=== PATIENT | male | born 1995 | race Caucasian/White ===

== ENCOUNTER 2017-09-25 13:25 | Emergency (ER) | payer OTHER ==
[~2017-09-25 13:25] MED LIST: AMOX-559 PO; LISD20CA4 PO
[2017-09-25 13:30] VITALS: BP 142/75
[2017-09-25] MEDS ORDERED: LORA1TAB69 PO (13:42)
[2017-09-25] MEDS ORDERED: LISD30PT PO (13:42)
[2017-09-25] MEDS ORDERED: BUPR-126 PO (13:42)
[2017-09-25] MEDS ORDERED: TETANUS/DIP TOX ADSORB PED IM ONLY ONE (14:17)
--- NOTE | 2017-09-25 14:18 | ER Report ---
History and Physical Time Seen By MD: 14:00 Hx. of Stated Complaint: CUT LEFT MIDDLE FINGER WHILE CUTTING UP VEGTABLES HPI/ROS CHIEF COMPLAINT: laceration left middle finger HISTORY OF PRESENT ILLNESS: pt is r hand dominant; was cutting potatoes at 1pm with clean serrated knife, cut l middle finger. Bleeding controlled with direct pressure at home. Had brief lightheadedness REVIEW OF SYSTEMS: Respiratory: No cough, no dyspnea. Cardiovascular: No chest pain, no palpitations. Gastrointestinal: No vomiting, no abdominal pain. Musculoskeletal: No other injuries Allergies: Coded Allergies: No Known Drug Allergies (Unverified , 08/23/16) Home Meds Reported Medications Loratadine/Pseudoephedrine (CLARITIN-D 24 HOUR TABLET) 1 Each Tab.er.24h, 1 EACH PO 09/25/17 Lisdexamfetamine Dimesylate (VYVANSE) 30 Mg Capsule, 30 MG PO QDAY, CAPSULE 09/25/17 Bupropion Hcl (WELLBUTRIN SR) 150 Mg Tablet.er, 150 MG PO QDAY, TAB 09/25/17 Lisdexamfetamine Dimesylate (VYVANSE) Unknown Strength Capsule, PO QDAY, CAPSULE 08/23/16 Discontinued Reported Medications Amoxicillin/Pot Clav 875-125 Mg Tab (AUGMENTIN 875-125 TABLET) 1 Each Tablet, 1 TAB PO Q12H for 10 Days, TAB 08/23/16 Hx Substance Use Disorder: Yes (POT IN THE PAST) Hx Alcohol Use: Yes Constitutional Vital Sign - Last 24 Hours 09/25/17 13:30 Temp 98.7 Pulse 79 Resp 18 B/P (MAP) 142/75 Pulse Ox 95 O2 Delivery Room Air Physical Exam General Appearance: [The patient is alert, has no immediate need for airway protection and no current signs of toxicity.] [ ] Eyes: Pupils equal and round no injection. Respiratory: Chest is non tender, lungs are clear to auscultation. Cardiac: regular rate and rhythm [ ] [Muscoskeletal:] Neck: Neck is supple and non tender. Extremities have full range of motion and are non tender. Skin: 1cm linear laceration radial aspect l middle finger [ ] DIFFERENTIAL DIAGNOSIS: After history and physical exam differential diagnosis was considered for laceration; bone/tendon joint involvement or foreign body, AMOS. Medical Decision Making ED Course/Re-evaluation ED Course pt tolerated procedure well. Understands importance of f/u, suture removal, SRP' s Procedure Procedure: Laceration repair. [Verbal consent was obtained from the patient.] The 1cm laceration on the l middle finger was anesthetized in the usual fashion. The wound was irrigated, draped and explored to its base with a gloved finger. [ ] There were no deep structures involved. No tendon injury was identified. The wound was repaired with 4 0 prolene 4 sutures. The wound repair was simple. The procedure was performed by myself. Decision to Disposition Date: Sep 25, 2017 Decision to Disposition Time: 14:18 Depart Departure Latest Vital Signs Vital Signs Date Time Temp Pulse Resp B/P (MAP) Pulse Ox O2 Delivery O2 Flow Rate FiO2 09/25/17 13:30 98.7 79 18 142/75 95 Room Air Impression: Primary Impression: Laceration of left middle finger Condition: Improved Disposition: HOME OR SELF-CARE Patient Instructions: Finger Laceration (ED) Problem Qualifiers Primary Impression: Laceration of left middle finger Encounter type: initial encounter MANUEL TONEY MD Sep 25, 2017 14:18
== END 2017-09-25 14:28 | disposition home or self-care (01) ==
LOC: ER 13:43
DX: S61.213A Laceration without foreign body of left middle finger without damage to nail, initial encounter (principal); W26.0XXA Contact with knife, initial encounter
CPT/HCPCS: 90471; 90702; 99283

== ENCOUNTER 2017-10-01 19:23 | Emergency (ER) | payer OTHER ==
[~2017-10-01 19:23] MED LIST changes: +BUPR-126 PO; +LISD30PT PO; +LORA1TAB69 PO
--- NOTE | 2017-10-01 19:30 | ER Report ---
History and Physical Time Seen By MD: 19:28 HPI/ROS CHIEF COMPLAINT: Concerned about laceration repair HISTORY OF PRESENT ILLNESS: This is a 22-year-old male presents to the emergency department for concerns of the laceration repair that was done 5 days ago. The patient states that he was petting a dog today and noticed that there was some dog hair on the repaired laceration to his left middle finger. Patient states that he became concerned, felt it had become infected. He decided to come in for further evaluation. The wound is well approximated, sutures are intact, no erythema or cellulitis, no drainage. No other complaints. REVIEW OF SYSTEMS: Respiratory: No cough, no dyspnea. Cardiovascular: No chest pain, no palpitations. Gastrointestinal: No vomiting, no abdominal pain. Musculoskeletal: No back pain. Integumentary: As above. Allergies: Coded Allergies: No Known Drug Allergies (Unverified , 10/01/17) Home Meds Reported Medications Loratadine/Pseudoephedrine (CLARITIN-D 24 HOUR TABLET) 1 Each Tab.er.24h, 1 EACH PO 09/25/17 Lisdexamfetamine Dimesylate (VYVANSE) 30 Mg Capsule, 30 MG PO QDAY, CAPSULE 09/25/17 Bupropion Hcl (WELLBUTRIN SR) 150 Mg Tablet.er, 150 MG PO QDAY, TAB 09/25/17 Discontinued Reported Medications Lisdexamfetamine Dimesylate (VYVANSE) Unknown Strength Capsule, PO QDAY, CAPSULE 08/23/16 Amoxicillin/Pot Clav 875-125 Mg Tab (AUGMENTIN 875-125 TABLET) 1 Each Tablet, 1 TAB PO Q12H for 10 Days, TAB 08/23/16 Past Medical/Surgical History The patient has a past medical and surgical history of marijuana use, depression , PTSD, anxiety, ADHD, no previous surgeries. Reviewed Nurses Notes: Yes Hx Substance Use Disorder: Yes (POT IN THE PAST) Hx Alcohol Use: Yes Constitutional Vital Sign - Last 24 Hours 10/01/17 19:32 Temp 99.3 Pulse 112 Resp 16 B/P (MAP) 131/72 Pulse Ox 94 O2 Delivery Room Air Physical Exam General Appearance: The patient is alert, has no immediate need for airway protection and no current signs of toxicity. Eyes: Pupils equal and round no injection. Respiratory: Chest is non tender, lungs are clear to auscultation. Cardiac: regular rate and rhythm. Gastrointestinal: Abdomen is soft and non tender, no masses, bowel sounds normal. Musculoskeletal: Neck: Neck is supple and non tender. Extremities have full range of motion and are non tender. Skin: No rashes or lesions. Repaired laceration to the distal end of the right middle finger, appears to be intact, well approximated, no erythema or cellulitis. The sutures look in good repair. No red streaks moving up the arm. DIFFERENTIAL DIAGNOSIS: After history and physical exam differential diagnosis was considered for cellulitis. Medical Decision Making ED Course/Re-evaluation ED Course The patient was admitted to room. A history and physical were obtained. Differential diagnoses were considered. After evaluation of the wound I did reassure the patient that it does look in good repair, there is no erythema, no cellulitis, his done a good job of cleaning it, bacitracin was applied with a Band-Aid. I did encourage the patient to follow-up with Ana Priest or the ED to have the sutures reevaluated and removed. The patient was also given Zofran, ibuprofen and water in the emergency department as he states his stomach felt a little bit uneasy and he has some pain in his finger. No other questions or concerns at this time patient was discharged. Patient states he is feeling much better and is requesting to go home. Decision to Disposition Date: Oct 01, 2017 Decision to Disposition Time: 20:21 Depart Departure Latest Vital Signs Vital Signs Date Time Temp Pulse Resp B/P (MAP) Pulse Ox O2 Delivery O2 Flow Rate FiO2 10/01/17 19:32 99.3 112 16 131/72 94 Room Air Impression: Primary Impression: Laceration of left middle finger Condition: Improved Disposition: HOME OR SELF-CARE Referrals: ANA PRIEST (PCP) Patient Instructions: Acute Wound Care (ED), Finger Laceration (ED) Additional Instructions: Your laceration looks in good repair, no signs of infection such as redness, swelling, purulent drainage. Continue to cleanse the wound with mild soap and water as needed, avoid soaking the wound, no swimming or huttubing until sutures have been removed. Be sure to drink plenty of fluids during the day, you appear to be slightly under-hydrated. Follow up with your PCP or return to the ED for suture removal. Return to the ED for any other concerns or worsening symptoms. Problem Qualifiers Primary Impression: Laceration of left middle finger Encounter type: subsequent encounter Damage to nail status: without damage Foreign body presence: without foreign body Qualified Codes: S61.213D - Laceration without foreign body of left middle finger without damage to nail, subsequent encounter DEVYN GARCIA ART TRACER-BC Oct 01, 2017 19:30
[2017-10-01 19:32] VITALS: BP 131/72
[2017-10-01] MEDS ORDERED: ONDANSETRON 4 MG/2 ML VIAL IVP ONE (19:40)
[2017-10-01] MEDS ORDERED: IBUPROFEN 800 MG TAB PO ONE (19:40)
[2017-10-01] MEDS ORDERED: ONDANSETRON 4 MG TAB PO ONE (19:50)
[2017-10-01] MEDS ORDERED: ONDANSETRON 4 MG ODT TABDP SL ONE (19:50)
== END 2017-10-01 20:24 | disposition home or self-care (01) ==
LOC: ER 19:34
DX: S61.213D Laceration without foreign body of left middle finger without damage to nail, subsequent encounter (principal)
CPT/HCPCS: 99283; S0119